=== PATIENT | male | born 1950 | race Caucasian/White ===

== ENCOUNTER → 2016-10-24 | Day surgery (SDC) | payer OTHER, MEDICARE ==
[~2016-10-24] MED LIST: ALLO300T PO; FENTANYL PF 100 MCG/2 ML VIAL. IV PRN; HYDROMORPHONE 2 MG/ML VIAL. IV PRN; IV RINGERS,LACTATED 1000ML 1,000 ML IV SCH; LIDOCAINE 1% 1 ML SYRINGE. ID PRN; LIDOCAINE 2% PF Vial for OR 5 ML VIAL. ONE; LISI40TA PO; METF10002 PO; MORPHINE SULFATE 2 MG/ML DISP.SYRIN. IV PRN; MULT-245 PO; OMEP20CA9 PO; ONDANSETRON PF 4 MG/2 ML VIAL. IV PRN; PROCHLORPERAZINE 10 MG/2 ML VIAL. IV PRN; PROPOFOL 0 ML IV ONE; PROPOFOL 40 ML IV ONE; SIMV20TA3 PO; TAMS0.4C2 PO
[2016-10-24 08:05] VITALS: BP 117/68
== END ==
LOC: SURG 05:47
PROVIDERS: ATTEND Internal Medicine Gastroenterology
DX: Z12.11 Encounter for screening for malignant neoplasm of colon (principal); K57.30 Diverticulosis of large intestine without perforation or abscess without bleeding; K64.0 First degree hemorrhoids; K44.9 Diaphragmatic hernia without obstruction or gangrene; K29.50 Unspecified chronic gastritis without bleeding; K21.9 Gastro-esophageal reflux disease without esophagitis; E11.9 Type 2 diabetes mellitus without complications; M19.90 Unspecified osteoarthritis, unspecified site; E78.00 Pure hypercholesterolemia, unspecified; I10 Essential (primary) hypertension; F41.9 Anxiety disorder, unspecified; Z72.89 Other problems related to lifestyle; Z85.01 Personal history of malignant neoplasm of esophagus
CPT/HCPCS: 43235; 45378; J2704

== ENCOUNTER 2018-10-16 12:13 | Day surgery (SDC) | payer MEDICARE, OTHER ==
[~2018-10-16] VITALS: Ht 170.2 cm; Wt 90.7 kg
[~2018-10-16 12:13] MED LIST changes: -FENTANYL PF 100 MCG/2 ML VIAL. IV PRN; -HYDROMORPHONE 2 MG/ML VIAL. IV PRN; +HYDROmorphone 2 MG/ML VIAL IV PRN; -LIDOCAINE 1% 1 ML SYRINGE. ID PRN; +LIDOCAINE 1% PF 2 ML VIAL. ID PRN; -LIDOCAINE 2% PF Vial for OR 5 ML VIAL. ONE; +LISI-130 PO; -LISI40TA PO; -METF10002 PO; +METF10007 PO; -MORPHINE SULFATE 2 MG/ML DISP.SYRIN. IV PRN; +MORPHINE SULFATE 2 MG/ML VIAL. IV PRN; -PROPOFOL 0 ML IV ONE; -PROPOFOL 40 ML IV ONE; +fentaNYL PF VIAL 100 MCG/2 ML VIAL IV PRN
[2018-10-16] MEDS ORDERED: PROPOFOL 20 ML IV ONE (12:32)
[2018-10-16] MEDS ORDERED: LIDOCAINE 2% PF Vial for OR 5 ML VIAL. ONE (12:32)
[2018-10-16] MEDS ORDERED: fentaNYL PF VIAL 100 MCG/2 ML VIAL ONE (13:58)
[2018-10-16] MEDS ORDERED: SEVOFLURANE 16 TO 30 MINUTES. IH ONE (14:09)
[2018-10-16] MEDS ORDERED: DEXAMETHASONE SOD PHOS 20 MG/5 ML VIAL. ONE (14:09)
[2018-10-16] MEDS ORDERED: ONDANSETRON PF 4 MG/2 ML VIAL. ONE (14:09)
[2018-10-16] MEDS ORDERED: OPIUM/BELLADONNA 30/16.2MG SUPP.RECT. PR ONE (15:30)
--- NOTE | 2018-10-16 15:42 | PDOC4 ---
OPERATIVE NOTE Date: Date: Oct 16, 2018 Pre-Op Diagnosis: BPH with obstruction Post-Op Diagnosis: same Procedure Performed: cystoscopy, greenlight laser vaporization of the prostate Surgeon: Jeniffer Ren Anesthesia Type: general Blood Loss: 0 Specimans Obtained: none Findings: enlarged obstructive prostate Complications: none Operative Note: see dictated operative note. 220 KJ energy used. JENIFFER REN MD Oct 16, 2018 15:42
--- NOTE | 2018-10-16 15:44 | DISCH ---
DISCHARGE INSTRUCTIONS Condition on Discharge Condition on Discharge: Stable Activity After Discharge Activity Instructions for Disc: Activity as tolerated Lifting Instructions after Dis: No heavy lifting Weight Bearing Status after Di: As tolerated Diet after Discharge Diet after Discharge: Regular Wound Incision Care Other wound/incision instructi: remove jack in 3 days. call if you have any questions Contacting the [facility] after DC Call your doctor for: Concerns you may have Follow-Up Follow up with: Dr. Ren 4 weeks Treatment/Equipment after DC Adaptive Equipment Issued: None JENIFFER REN MD Oct 16, 2018 15:43
[2018-10-16] MEDS ORDERED: HYDR-3164 PO (15:48)
[2018-10-16] MEDS ORDERED: SULF1TAB24 PO (15:48)
--- NOTE | 2018-10-16 16:02 | OP ---
DATE OF SURGERY: 10/16/2018 SURGEON: Jeniffer Ren MD. ROSS LIFT OPERATOR: None. PREOPERATIVE DIAGNOSIS: Benign prostatic hypertrophy with obstruction. POSTOPERATIVE DIAGNOSIS: Benign prostatic hypertrophy with obstruction. PROCEDURE PERFORMED: GreenLight laser vaporization of the prostate. ANESTHESIA TYPE: General. INDICATION FOR PROCEDURE: This is a 67-year-old male with obstructive prostate, which has not improved with medications. After discussion of risks, benefits and alternatives, he agreed to the above procedure. DESCRIPTION OF PROCEDURE: Informed consent was obtained. The patient was taken to the operating room where general anesthesia was induced. He was placed in the dorsal lithotomy position and sterilely prepped and draped. A timeout was performed. A flexible cystoscope was advanced through the urethra and into the bladder. The prostate was noted to be obstructed due to lateral lobe enlargement of the prostate as well as an elevated bladder neck. There were no abnormalities noted in the bladder. Both ureteral orifices were fairly close to the bladder neck. There was no median lobe. The lateral lobes did not bulge into the bladder. Next, a continuous flow cystoscope was advanced through the urethra and into the bladder. The prostate was then vaporized starting at the bladder neck and the lateral lobes were treated back to the veru. Hemostasis was excellent at the end of the procedure. Both ureteral orifices were visualized at the end of the procedure and appeared unremarkable. The scope was removed. An 18-[place] coude catheter was placed with drainage of completely clear fluid. The catheter irrigated easily. The balloon was inflated and left to gravity drainage. A belladonna and opiate suppository was administered. The patient was then awakened and taken to the recovery room in stable condition. BLOOD LOSS: None. COMPLICATIONS: None. SPECIMEN: None. JENIFFER REN MD DR: WILBUR/nts JOB#: [id number] / [id number]
[2018-10-16] MEDS ORDERED: HYDROcodone/APAP 5/325MG 1 TAB TABLET ONE (16:07)
[2018-10-16] MEDS ORDERED: HYDROcodone/APAP 5/325MG 1 TAB TABLET PO ONE (16:15)
[2018-10-16] MEDS: fentaNYL PF VIAL 100 MCG/2 ML VIAL IV PRN ×2 (16:17→17:12)
[2018-10-16] MEDS ORDERED: MEPERIDINE PF 25 MG/ML VIAL. IV SCH (16:30)
[2018-10-16] MEDS ORDERED: HYOSCYAMINE 0.125 MG TAB.RAPDIS PO PRN (16:45)
--- NOTE | 2018-10-16 17:15 | NUR ---
at bedside to assess pt at this time.
[2018-10-16 17:35] VITALS: BP 145/91
== END 2018-10-16 17:55 | disposition home or self-care (01) ==
LOC: SURG 12:13
PROVIDERS: ATTEND Urology
DX: N40.1 Benign prostatic hyperplasia with lower urinary tract symptoms (principal); N13.8 Other obstructive and reflux uropathy; C61 Malignant neoplasm of prostate; I10 Essential (primary) hypertension; E78.00 Pure hypercholesterolemia, unspecified; E11.9 Type 2 diabetes mellitus without complications; Z79.899 Other long term (current) drug therapy; Z98.890 Other specified postprocedural states; Z98.52 Vasectomy status; Z79.84 Long term (current) use of oral hypoglycemic drugs; Z83.3 Family history of diabetes mellitus; Z82.49 Family history of ischemic heart disease and other diseases of the circulatory system; Z72.89 Other problems related to lifestyle
CPT/HCPCS: 52648; 82962; A7015; J0690; J1100; J2001; J2175; J2405; J2704; J3010; J7120; J0696

== ENCOUNTER → 2021-11-03 | Outpatient (CLI) | payer OTHER ==
[~2021-11-03] MED LIST changes: +HYDR-3164 PO; -HYDROmorphone 2 MG/ML VIAL IV PRN; -IV RINGERS,LACTATED 1000ML 1,000 ML IV SCH; -LIDOCAINE 1% PF 2 ML VIAL. ID PRN; -MORPHINE SULFATE 2 MG/ML VIAL. IV PRN; +OMEP20CA16 PO; -OMEP20CA9 PO; -ONDANSETRON PF 4 MG/2 ML VIAL. IV PRN; -PROCHLORPERAZINE 10 MG/2 ML VIAL. IV PRN; +SIMV20TA18 PO; -SIMV20TA3 PO; +SULF1TAB24 PO; -fentaNYL PF VIAL 100 MCG/2 ML VIAL IV PRN
--- NOTE | 2021-11-03 08:50 | KCIC ---
EXAM: CT coronary artery calcium screening; radiologist over read. HISTORY: Hyperlipidemia. Hypertension. Maternal family history of heart disease. TECHNIQUE: Computed tomographic images of the chest were obtained without contrast. Multiplanar refor matting was performed. *One or more of the following individualized dose reduction techniques were utilized for this examina tion: 1. Automated exposure control. 2. Adjustment of the mA and/or kV according to patient size. 3. Use of iterative reconstruction technique. COMPARISON: None. FINDINGS: The heart is normal in size. There is borderline aneurysmal dilatation of the ascending aor ta to a caliber of 4.0 cm. There is calcified atherosclerotic plaque involving the coronary arteries. There is no lymphadenopathy. There is no pneumothorax or pleural effusion. There is a right lower lo be atelectasis or scarring. There is fusion and there are healed fractures of the posterior medial ri ght sixth and seventh ribs there is linear scarring or atelectasis within the left lower lobe. There is a calcified granuloma within the left lower lobe. There is no infiltrate or suspicious pulmonary n odule. There is no acute finding involving the upper abdomen.. Coronary artery calcium score: Left main artery - 0 Left anterior descending - 18.3 Left circumflex - 0 Right coronary artery - 45.2 Posterior descending artery - 0 TOTAL = 63.6 IMPRESSION: 1. Calcified atherosclerotic plaque involving the coronary arteries. Coronary artery calcium score of 63.6. 2. Borderline aneurysmal dilatation of the ascending aorta to a caliber of 4.0 cm. 3. Bilateral lower lobe atelectasis and pleural parenchymal scarring and chronic deformity of the rig ht posterior medial sixth and seventh ribs. Electronically signed by: Radha Lorenzo MD (11/03/2021 8:48 AM) [id number]
== END ==
LOC: KCIC CT 08:11
PROVIDERS: ATTEND Physician Assistant Medical
DX: I25.10 Atherosclerotic heart disease of native coronary artery without angina pectoris (principal); E78.5 Hyperlipidemia, unspecified; J98.11 Atelectasis; J98.4 Other disorders of lung; M95.4 Acquired deformity of chest and rib
CPT/HCPCS: 75571